=== PATIENT | male | born 1970 | race Caucasian/White ===

== ENCOUNTER → 2021-01-30 09:06 | Outpatient (BNVA) | payer OTHER, SELFPAY | PROVIDERS: Family Provider Family Medicine; PCP Family Medicine; Visit Provider Nurse Practitioner | DX: M51.36 Other intervertebral disc degeneration, lumbar region (principal) | CPT/HCPCS: 72100 ==

== ENCOUNTER → 2021-05-27 08:29 | Outpatient (BNVA) | payer OTHER, SELFPAY | PROVIDERS: Family Provider Family Medicine; PCP Family Medicine; Visit Provider Nurse Practitioner | DX: J02.9 Acute pharyngitis, unspecified (principal); Z20.822 Contact with and (suspected) exposure to COVID-19 | CPT/HCPCS: 87635 ==

== ENCOUNTER 2021-06-01 07:27 | Outpatient (CLI) | payer OTHER, SELFPAY ==
[2021-06-01 08:29] VITALS: BP 118/67; PULSE 84; RESP 22; TEMP 38; O2SAT 94
[2021-06-01 09:12] VITALS: BP 134/72; PULSE 77; RESP 21; O2SAT 87; BMI 38.0
[2021-06-01 12:11] LABS: Alanine Aminotransferase 29 U/L (0-41); Alkaline Phosphatase 42 IU/L (40-130); Anion Gap 13.8 (5-19); Aspartate Amino Transferase 37 U/L (0-40); Blood Urea Nitrogen 13 mg/dL (6-20); Calcium 8.5 mg/dL (8.5-10.5); Carbon Dioxide 27 mmol/L (22-29); Chloride 95 mmol/L (98-107); Globulin 3.2 g/dL (1.3-4.6); Glomerular Filtration Rate 89.7 mL/min (90-130); Glucose 92 mg/dL (65-115); Osmolality Calculated 274 mOsm/kg (285-295); Potassium 3.8 mmol/L (3.5-5.1); Sodium 132 mmol/L (136-145); Total Bilirubin 0.4 mg/dL (0.15-1.2); Total Protein 7.2 g/dL (6.6-8.7)
[2021-06-01 12:57] LABS: Basophils % 0.3 %; Hematocrit 25.6 % (42.0-52.0); Hemoglobin 8.7 g/dL (11.7-16.6); Lymphocytes # 0.7 10^3/uL (0.8-4.8); Lymphocytes % 20.9 %; Mean Corpuscular Hemoglobin 30.1 pg (28.0-34.0); Mean Corpuscular Volume 88.6 fL (80-94); Mean Platelet Volume 11.2 fL (7.4-10.4); Monocytes # 0.2 10^3/uL (0.2-0.9); Monocytes % 6.7 %; Neutrophils # 2.47 10^3/uL (1.8-7.7); Neutrophils % 71.8 %; Nucleated Red Blood Cells % 0 %; Platelet Count 285 10^3/cmm (130-400); Red Blood Count 2.89 10^6/uL (4.1-5.3); Red Cell Distribution Width 12.8 % (12.1-15.1); White Blood Count 3.4 10^3/uL (4.0-10.0)
== END 2021-06-01 10:41 | disposition home or self-care (01) ==
PROVIDERS: Family Medicine; PCP Nurse Practitioner; Visit Provider Nurse Practitioner
DX: U07.1 COVID-19 (principal)
CPT/HCPCS: 80053; 85025

== ENCOUNTER 2021-06-01 10:43 | Emergency (ER) | payer OTHER, SELFPAY ==
[2021-06-01 10:44] VITALS: BP 147/80; PULSE 81; RESP 18; O2SAT 93; BMI 38.0
[2021-06-01 11:07] VITALS: BP 155/82; PULSE 80; RESP 41; O2SAT 93
--- NOTE | 2021-06-01 11:10 | XRR_ITS ---
PROCEDURE INFORMATION: Exam: XR Chest Exam date and time: 06/01/2021 11:10 AM Age: 50 years old Clinical indication: Cough; Additional info: Covid/hypoxia TECHNIQUE: Imaging protocol: XR of the chest. Views: 1 view. COMPARISON: CR Chest 1 [place] [id number] 10/18/2019 5:05 PM FINDINGS: Lungs: Low lung volumes with nonspecific prominent interstitial markings. No focal consolidation. Pleural spaces: Unremarkable. No pleural effusion. No pneumothorax. Heart/Mediastinum: Unremarkable. No cardiomegaly. Bones/joints: Unremarkable. XR/XR chest 1V portable [id number] IMPRESSION: Low lung volumes with nonspecific prominent interstitial markings. No focal consolidation.
--- NOTE | 2021-06-01 11:12 | ED_ITS ---
HPI - SOB/Dyspnea General: Chief Complaint: Shortness of Breath/Dyspnea Stated Complaint: Covid Time Seen by Provider: 06/01/21 10:52 History of Present Illness: HPI Narrative: 50-year-old male who arrived at the ER for scheduled monoclonal antibody infusion. His symptoms began 8 days ago he was diagnosed 5 days ago with Covid. He had increasing shortness of breath and evaluation for monoclonal antibody was found to be 87% on room air is not usually on oxygen requiring 2 L of oxygen to maintain sats in the mid 90s but with any exertion even sitting up in bed he desaturates immediately to 89 to 90%. He has had cough with nausea and vomiting some loose stools and diarrhea although that has resolved MD elicited complaint: shortness of breath and cough Onset (ago): day(s) (8) Context: recent illness (Diagnosed with Covid on symptoms started on ) Timing: constant Severity: moderate Exacerbating factors: exertion and coughing Relieving factors: oxygen and rest Associated symptoms: Reports chest congestion, cough, fever(s), myalgias and nausea; Deny abdominal pain, chest pain, diaphoresis, dizziness, extremity pain, hemoptysis, lightheadedness, orthopnea, palpitations, paresthesias, polydipsia, polyuria, rash, sense of impending doom, syncope or vomiting Treatment prior to arrival: none Review of Systems Const: Reports: fever(s); Denies: diaphoresis Card: Denies: chest pain, palpitations, lightheadedness, syncope or orthopnea Resp: Reports: chest congestion; Denies: hemoptysis GI: Reports: nausea; Denies: abdominal pain or vomiting Musc: Denies: extremity pain Neuro: Denies: dizziness Endo: Denies: polyuria or polydipsia [facility] ED PFSH: Medical History Diverticulosis Essential hypertension History of tick-borne relapsing fever Obesity (BMI 30-39.9) Surgical History History of knee surgery right 1995 History of vasectomy Family History Mother Diabetes Grandmother Cancer Gastric Father Heart disease Social History Second hand smoke exposure: No Smoking risk assessment/counseling performed?: No Alcohol intake: never Desire information about alcohol rehabilitation?: No Counseling given: No Desire information about substance/drug rehabilitation?: No Counseling given: No Adopted: No Caregiver/support person: No Lives independently: Yes Household members: spouse Housing: House Marital status: Number of children: 2 service: No Current occupational status: employed History of recent travel: No Current gender identity: Male Physical Exam Const: COMMON NORMALS: no acute distress GENERAL APPEARANCE: cooperative and comfortable ORIENTATION/CONSCIOUSNESS: Yes awake, Yes oriented to person, Yes oriented to place and Yes oriented to time HENMT: COMMON NORMALS: normocephalic, atraumatic and hearing grossly normal bilaterally HEAD & SCALP: normocephalic and atraumatic Neck/C-Spine: COMMON NORMALS: no JVD Resp: COMMON NORMALS: normal respiratory effort, No retractions and No use of accessory muscles AUSCULTATION: wheezes Cardio: COMMON NORMALS: no JVD, regular rate, regular rhythm and No murmurs present (Cardio) RATE: regular rate RHYTHM: regular rhythm GI: COMMON NORMALS: Soft to palpation and No hepatosplenomegaly present AUSCULTATION: Yes normoactive bowel sounds PALPATION: Yes Soft to palpation, No Tenderness to palpation present (GI), No Guarding due to palpation present (GI) and Yes No hepatosplenomegaly present Extremity: COMMON NORMALS: normal to inspection, capillary refill normal, no clubbing, cyanosis or edema, no calf tenderness and no pedal edema Neuro: SENSORIUM/ORIENTATION: Yes oriented to person, Yes oriented to place and Yes oriented to time Skin: COMMON NORMALS: no rashes or lesions noted GENERAL SKIN EXAM: no rashes or lesions noted Course Vital Signs: Vital signs: Vital Signs Pulse Rate 84 06/01/21 11:30 Respiratory Rate 18 06/01/21 11:30 Blood Pressure 156/85 06/01/21 11:30 Pulse Oximetry 96 06/01/21 12:16 MDM - SOB/Dyspnea MDM Narrative: Medical decision making narrative: Patient came in initially for evaluation for monoclonal antibody infusion. On arrival here there is a question about his oxygen saturation use admitted to the ER and evaluated. We did a home oxygen evaluation which he actually passed and did not desaturate. Given that he still does meet qualifications for the Regeneron infusion he wishes to proceed. Patient discharged after infusion. Added dexamethasone 6 mg daily for 7 days. Discharge Plan Discharge Patient Disposition: Home Clinical Impression: COVID-19, Obesity (BMI 30-39.9) Condition: Stable Prescriptions: New dexamethasone 6 mg tablet 6 mg PO DAILY Qty: 7 RF: 0 No Action lidocaine HCl [Lidocaine Viscous] 2 % solution 5 ml mucous membrane QID PRN (Reason: pain) Qty: 100 RF: 0 promethazine [Promethegan] 25 mg suppository 25 mg VT Q6H PRN (Reason: nausea and vomiting) Qty: 6 RF: 0 albuterol sulfate [Ventolin HFA] 90 mcg/actuation HFA aerosol inhaler 2 puff inhalation Q6H PRN (Reason: shortness of breath or wheezing) Qty: 8.5 RF: 0 methocarbamol [Robaxin-750] 750 mg tablet 750 mg PO .2 times day PRN (Reason: muscle pain) Qty: 60 RF: 5 doxepin 10 mg capsule 10 mg PO TID PRN (Reason: anxiety) Qty: 90 RF: 2 lisinopril 40 mg tablet 40 mg PO DAILY Qty: 90 RF: 0 ondansetron 4 mg tablet,disintegrating 4 mg PO Q6H PRN (Reason: nausea and vomiting) Qty: 30 RF: 0 Discharge Orders: Discharge ED (Routine); Ordered 06/01/21 Ordered By: Ki Perez Referrals: Praveen Biswas, [employer] [Primary Care Provider] - Discharge Diet: Usual diet Discharge Activity: Increase activity as tolerated Patient Instructions: Opioid Safety Activity Restrictions/Additional Instructions: Monitor oxygen sats at home. Return if you have further problems. 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
[2021-06-01 11:30] VITALS: BP 156/85; PULSE 84; RESP 18; O2SAT 98
[2021-06-01 12:16] VITALS: O2SAT 90; O2SAT 96
[2021-06-01] MEDS: ondansetron 2 mg/ML SDV 2 mL 4 MG IVP (13:34)
[2021-06-01 13:35] VITALS: BP 118/67; PULSE 77; RESP 18; TEMP 37.4; O2SAT 92
--- NOTE | 2021-06-01 13:50 | PC.NURSE ---
Infusion finished, Denies any complaints at this time.
[2021-06-01 14:50] VITALS: BP 119/73; PULSE 83; RESP 18; TEMP 38.1; O2SAT 93
--- NOTE | 2021-06-01 14:50 | PC.NURSE ---
DC instructions given to patient, voiced full understanding with no questions. IV DC'd cath intact, bleeding controlled with cotton ball and coban. Patient to ER entrance via wheelchair transferred self to POV with zero difficulties.
== END 2021-06-01 14:50 | disposition home or self-care (01) ==
PROVIDERS: Emergency Provider Family Medicine; PCP Nurse Practitioner
DX: U07.1 COVID-19 (principal); E66.9 Obesity, unspecified; I10 Essential (primary) hypertension; Z68.38 Body mass index [BMI] 38.0-38.9, adult
CPT/HCPCS: 71045; 96365; 96375; 99284; J2405

== ENCOUNTER → 2022-06-06 12:02 | Outpatient (BNVA) | payer BC, SELFPAY | PROVIDERS: PCP Nurse Practitioner | DX: R11.2 Nausea with vomiting, unspecified (principal); Z20.822 Contact with and (suspected) exposure to COVID-19 | CPT/HCPCS: 85025; 87635 ==

== ENCOUNTER → 2023-04-03 09:37 | Outpatient (BNVA) | payer BC, SELFPAY | PROVIDERS: PCP Nurse Practitioner; Visit Provider Nurse Practitioner | DX: F41.9 Anxiety disorder, unspecified (principal); M79.18 Myalgia, other site; I10 Essential (primary) hypertension; E66.9 Obesity, unspecified | CPT/HCPCS: 80053; 80061 ==

== ENCOUNTER → 2024-02-19 08:06 | Outpatient (BNVA) | payer BC, SELFPAY | PROVIDERS: PCP Nurse Practitioner; Visit Provider Nurse Practitioner | DX: I10 Essential (primary) hypertension (principal) | CPT/HCPCS: 80053; 80061 ==

== ENCOUNTER → 2024-06-06 11:26 | Outpatient (BNVA) | payer BC, SELFPAY | PROVIDERS: PCP Nurse Practitioner; Visit Provider Nurse Practitioner Family | DX: M25.512 Pain in left shoulder; M25.612 Stiffness of left shoulder, not elsewhere classified; M19.012 Primary osteoarthritis, left shoulder | CPT/HCPCS: 73030 ==

== ENCOUNTER → 2024-08-15 08:06 | Outpatient (BNVA) | payer BC, SELFPAY | PROVIDERS: PCP Nurse Practitioner; Visit Provider Nurse Practitioner | DX: Z12.5 Encounter for screening for malignant neoplasm of prostate (principal); I10 Essential (primary) hypertension | CPT/HCPCS: 80053; 80061; 84443; G0103 ==

== ENCOUNTER → 2025-01-24 17:20 | Outpatient (BNVA) | payer BC, SELFPAY | PROVIDERS: PCP Nurse Practitioner; Visit Provider Nurse Practitioner | DX: I10 Essential (primary) hypertension (principal) | CPT/HCPCS: 80053; 80061 ==

== ENCOUNTER → 2025-08-18 08:22 | Outpatient (BNVA) | payer BC, SELFPAY | PROVIDERS: PCP Nurse Practitioner; Visit Provider Nurse Practitioner | DX: Z12.5 Encounter for screening for malignant neoplasm of prostate (principal); I10 Essential (primary) hypertension | CPT/HCPCS: 80053; 80061; G0103 ==